=== PATIENT | female | born 1945 | race Caucasian/White ===

== ENCOUNTER 2020-08-12 09:18 | Day surgery (SDC) | payer OTHER ==
[~2020-08-12 09:18] MED LIST: ANALPRAM HC 2.530 GM TOP; PERCOCET 5-3251 EACH PO; RECTICARE30 GM TOP
== END 2020-08-12 13:00 | disposition home or self-care (01) ==
LOC: AMB-ENDOS 09:18
PROVIDERS: ATTEND Surgery
DX: D12.3 Benign neoplasm of transverse colon (principal); D12.5 Benign neoplasm of sigmoid colon; D12.7 Benign neoplasm of rectosigmoid junction; Z20.822 Contact with and (suspected) exposure to COVID-19

== ENCOUNTER 2023-09-30 21:55 | Emergency (ER) | payer OTHER ==
[~2023-09-30] VITALS: Ht 162.6 cm; Wt 85.3 kg
[2023-09-30] MEDS ORDERED: IRBESARTAN150 MG (21:56)
[2023-09-30] MEDS ORDERED: ST. JOSEPH ASPI81 M2 (21:57)
[2023-09-30] MEDS ORDERED: NABUMETONE750 MG (21:57)
[2023-09-30] MEDS ORDERED: SUCRALFATE1 GM (21:57)
[2023-09-30] MEDS ORDERED: PANTOPRAZOLE SO40 MG (21:57)
[2023-09-30] MEDS ORDERED: FAMOTIDINE20 MG (21:57)
[2023-09-30] MEDS ORDERED: NEURONTIN600 M1 (21:58)
[2023-09-30] MEDS ORDERED: CLINDAMYCIN PHOSPHATE 150 MG/ML (900mg) IV STA (23:05)
[2023-09-30] MEDS ORDERED: KETOROLAC TROMETHAMINE 30 MG VIAL IV STA (23:14)
[2023-10-01 00:22] LABS: HEMATOCRIT 38.1 % (36.0-45.00); HEMOGLOBIN 12.1 g/dL (12.0-15.00); MEAN CELL VOLUME 81.7 fL (80.00-100.00); MEAN CORPUSCULAR HEMOGLOBIN 25.9 pg (27.00-32.0); MEAN CORPUSCULAR HGB CONC 31.7 g/dl (32.0-36.0); PLATELET COUNT 215 K/uL (150-450); RED BLOOD COUNT 4.67 M/uL (4.00-6.00); RED CELL DISTRIBUTION WIDTH 14.2 % (11.5-14.5)
[2023-10-01 00:40] LABS: ERYTHROCYTE SEDIMENTATION RATE 39 mm/hr
[2023-10-01 01:27] LABS: ALBUMIN 3.5 gm/dL (3.4-5.0); BILIRUBIN TOTAL 0.37 mg/dL (0.3-1.2); CALCIUM 10.8 mg/dL (8.5-10.1); CREATININE SERUM 0.89 mg/dL (0.55-1.02); GFR 61.34; GLOBULINA 3.1 G/DL (2.4-3.5); POTASSIUM 4.09 mEq/L (3.5-5.1); TOTAL PROTEIN 6.6 gm/dL (6.4-8.2)
[2023-10-01] MEDS ORDERED: DIPHENHYDRAMINE HCL 50 MG/ML VIAL 1ML IV STA (02:30)
[2023-10-01] MEDS ORDERED: MORGIDOX100 MG PO (06:51)
== END 2023-10-01 07:24 ==
LOC: ER 21:55
PROVIDERS: General Practice
DX: L03.116 Cellulitis of left lower limb (principal); I10 Essential (primary) hypertension; E11.9 Type 2 diabetes mellitus without complications; Z88.2 Allergy status to sulfonamides; Z91.041 Radiographic dye allergy status
CPT/HCPCS: 36415; 96365; 99282; J1200; J1885; J3490

== ENCOUNTER 2023-10-08 06:41 | Emergency (ER) | payer OTHER ==
[~2023-10-08] VITALS: Ht 162.6 cm; Wt 85.3 kg
[~2023-10-08 06:41] MED LIST changes: +FAMOTIDINE20 MG; +IRBESARTAN150 MG; +MORGIDOX100 MG PO; +NABUMETONE750 MG; +NEURONTIN600 M1; +PANTOPRAZOLE SO40 MG; +ST. JOSEPH ASPI81 M2; +SUCRALFATE1 GM
[2023-10-08 09:41] LABS: MEAN CELL VOLUME 81.2 fL (80.00-100.00); MEAN CORPUSCULAR HEMOGLOBIN 26.4 pg (27.00-32.0); MEAN CORPUSCULAR HGB CONC 32.5 g/dl (32.0-36.0); PLATELET COUNT 274 K/uL (150-450); RED BLOOD COUNT 4.92 M/uL (4.00-6.00); RED CELL DISTRIBUTION WIDTH 14.6 % (11.5-14.5)
[2023-10-08 09:47] LABS: ERYTHROCYTE SEDIMENTATION RATE 41 mm/hr
[2023-10-08 10:09] LABS: ALBUMIN 4.4 gm/dL (3.4-5.0); ALKALINE PHOSPHATASE 166 U/L (50-136); ALT/SGPT 41 U/L (12-78); ANION GAP 8 (10.0-20.0); AST/SGOT 31 U/L (15-37); BILIRUBIN TOTAL 0.27 mg/dL (0.3-1.2); BLOOD UREA NITROGEN 21 mg/dL (7-18); BUN CREA RATIO 27 (7.0-25.0); CALCIUM 11.6 mg/dL (8.5-10.1); CARBON DIOXIDE 25 mEq/L (21-32); CHLORIDE 109 mmol/L (98-107); CREATININE SERUM 0.79 mg/dL (0.55-1.02); GFR 70.38; GLOBULINA 3.9 G/DL (2.4-3.5); GLUCOSE FASTING 65 mg/dL (65-100); OSMOLALITY SERUM 277 MOSM/KG (275-295); POTASSIUM 4.15 mEq/L (3.5-5.1); SODIUM 138 mmol/L (136-145); TOTAL PROTEIN 8.3 gm/dL (6.4-8.2)
[2023-10-08 10:10] LABS: C-REACTIVE PROTEIN < 0.29 MG/DL (0.00-0.29)
[2023-10-08 10:18] LABS: INR 1.04; PROTHROMBIN TIME 10.9 SECONDS (9.0-11.5)
[2023-10-08] MEDS ORDERED: CERAVE ITCH RE237 ML TOP (10:30)
[2023-10-08 11:06] LABS: PARTIAL THROMBOPLASTIN TIME < 20.0 SECONDS (22.0-34.0)
== END 2023-10-08 15:50 | disposition home or self-care (01) ==
LOC: ER 06:41
PROVIDERS: General Practice
DX: L03.116 Cellulitis of left lower limb (principal); L29.9 Pruritus, unspecified; I10 Essential (primary) hypertension; Z88.2 Allergy status to sulfonamides; Z91.041 Radiographic dye allergy status

== ENCOUNTER 2024-09-17 07:33 | Emergency (ER) | payer OTHER ==
[~2024-09-17] VITALS: Ht 162.6 cm; Wt 80.3 kg
[~2024-09-17 07:33] MED LIST changes: +CERAVE ITCH RE237 ML TOP
[2024-09-17 07:50] VITALS: BP 148/71; O2SAT 97
[2024-09-17] MEDS ORDERED: CEFTRIAXONE SODIUM 1,000 MG VIAL IV STA (09:09)
[2024-09-17] MEDS ORDERED: FUROsemide 1 MG/ML ML (REDILUIDO) IV STA (09:10)
[2024-09-17] MEDS ORDERED: CEFTRIAXONE SODIUM 1,000 MG VIAL ONE (09:19)
[2024-09-17] MEDS ORDERED: FUROsemide 20 MG/2 ML VIAL ONE (09:19)
[2024-09-17 10:00] LABS: BASO % 0.3 % (0.1-1.2); EOS # 0.37 (0.04-0.54); EOS % 5.2 % (0.7-7.0); HEMOGLOBIN 12.8 g/dL (11.2-15.7); LYMPH # 0.78 (1.18-3.74); LYMPH % 10.9 % (19.3-53.1); MEAN CORPUSCULAR HEMOGLOBIN 25.6 pg (25.6-32.2); MONO # 0.55 (0.24-0.82); MONO % 7.7 % (4.7-12.5); NEUT # 5.37 (1.56-6.13); NEUT % 75.2 % (34.0-71.1); PLATELET COUNT 188 K/uL (163-369); RED CELL DISTRIBUTION WIDTH 13.2 % (11.6-14.4)
[2024-09-17 10:16] LABS: PH,URINE 6.5 (5.0-8.0); URINE APPEARANCE Clear; URINE BILIRRUBIN Negative (NEGATIVE); URINE BLOOD Negative; URINE COLOR Yellow; URINE GLUCOSE Negative (NEGATIVE); URINE KETONE Negative (NEGATIVE); URINE LEUKOCYTE Negative; URINE NITRATE Negative; URINE PROTEIN Negative (NEGATIVE); URINE UROBILINOGEN 0.2 E.U./dl
[2024-09-17 10:17] LABS: URINE EPITHELIAL CELLS 4.8 uL (0.0-38.8); URINE RBC 2.6 uL (0.0-20.8); URINE WBC 7.2 uL (0.0-23.2)
[2024-09-17 10:27] LABS: URINE CAST 0.44 uL (0.0-1.40)
[2024-09-17 10:50] LABS: ALBUMIN 3.6 gm/dL (3.4-5.0); BILIRUBIN TOTAL 0.48 mg/dL (0.3-1.2); CALCIUM 10.3 mg/dL (8.5-10.1); CREATININE SERUM 0.71 mg/dL (0.55-1.02); GFR 79.41; GLOBULINA 3.5 G/DL (2.4-3.5); POTASSIUM 4.24 mEq/L (3.5-5.1); TOTAL PROTEIN 7.1 gm/dL (6.4-8.2)
[2024-09-17] MEDS ORDERED: CEFADROXIL500 MG PO (10:58)
== END 2024-09-17 11:46 | disposition home or self-care (01) ==
LOC: ER 07:33
PROVIDERS: Emergency Medicine
DX: L03.116 Cellulitis of left lower limb (principal); L03.115 Cellulitis of right lower limb; I10 Essential (primary) hypertension; Z88.2 Allergy status to sulfonamides; Z88.8 Allergy status to other drugs, medicaments and biological substances
CPT/HCPCS: 36415; 96365; 99283; J0696; J3490